=== PATIENT | male | born 1960 | race African-American/Black ===

== ENCOUNTER 2016-12-14 16:12 | Observation (INO) | payer OTHER ==
[~2016-12-14] VITALS: Ht 182.9 cm; Wt 99.6 kg
[~2016-12-14 16:12] MED LIST: AUGMENTIN875 MG PO; MOTRIN800 MG PO; NORCO 7.5/321 TABLET PO
[2016-12-14 16:35] LABS: HEMATOCRIT 38.2 % (38.0-50.0); MCH 30.7 PG (29.0-34.0); MCV 90.1 FL (86-99); MEAN PLAT.VOLUME 10.9 uM^3 (9.0-12.4); PLATELET COUNT 192 K/uL (156-360); RBC DIS.WIDTH-CV 13.4 % (11.8-14.6); RBC DIS.WIDTH-SD 44.5 % (39-53); RED BLOOD COUNT 4.24 M/uL (4.00-5.50)
[2016-12-14 16:46] LABS: CHLORIDE 108 mEq/L (99-109); POTASSIUM 3.2 mEq/L (3.7-5.4); SODIUM 142 mEq/L (136-147)
[2016-12-14 16:48] LABS: GLUCOSE 122 mg/dL (70-99)
[2016-12-14 16:49] LABS: ANION GAP 6 MEQ/L (2-14)
[2016-12-14 16:52] LABS: GFR ESTIMATE (CALCULATED) > 59 mL/min/
[2016-12-14 16:53] LABS: UREA NITROGEN (BUN) 7 mg/dL (9-23)
[2016-12-14 16:58] LABS: TROP-I INTERPRETATION NEGATIVE; TROPONIN-I 0.05 ng/mL (0.0-0.30)
[2016-12-14] MEDS ORDERED: NICODERM CQ1 EACH TD (19:57)
[2016-12-14] MEDS ORDERED: LO-DOSE ASPIRIN81 M2 PO (19:58)
[2016-12-14] MEDS ORDERED: SIMVASTATIN80 MG PO (19:58)
[2016-12-14] MEDS ORDERED: ATENOLOL50 MG PO (19:58)
[2016-12-14] MEDS ORDERED: HYDROCHLOROTHIA25 MG PO (19:59)
[2016-12-14] MEDS ORDERED: LISINOPRIL20 MG PO (19:59)
[2016-12-14] MEDS ORDERED: LANTUS 3 M100 UNITS1 SC (20:00)
[2016-12-14] MEDS ORDERED: METFORMIN HCL500 MG PO (20:00)
[2016-12-14] MEDS ORDERED: GLIPIZIDE5 MG PO (20:01)
[2016-12-14] MEDS ORDERED: IBUPROFEN800 MG PO (20:01)
[2016-12-14] MEDS ORDERED: NICOTINE LOZENGE2 MG BC (20:04)
[2016-12-14 21:26] LABS: TOTAL BILIRUBIN 0.6 mg/dL (0.0-1.0)
[2016-12-14 21:27] LABS: ALKALINE PHOSPHATASE 72 IU/L (3-129)
[2016-12-14 21:30] LABS: DIRECT BILIRUBIN 0.2 mg/dL (0.0-0.3)
[2016-12-14 21:31] LABS: LIPASE 17 U/L (1.0-51.0)
[2016-12-14 22:56] LABS: TROP-I INTERPRETATION NEGATIVE; TROPONIN-I 0.05 ng/mL (0.0-0.30)
[2016-12-15 00:32] VITALS: BP 171/91
[2016-12-15 00:59] LABS: POINT-OF-CARE METER ID UU13113831
[2016-12-15 04:51] VITALS: BP 134/80
[2016-12-15 05:15] LABS: HEMATOCRIT 37.3 % (38.0-50.0); MCH 30.8 PG (29.0-34.0); MCV 90.5 FL (86-99); RBC DIS.WIDTH-CV 13.4 % (11.8-14.6); RBC DIS.WIDTH-SD 44.5 % (39-53); RED BLOOD COUNT 4.12 M/uL (4.00-5.50)
[2016-12-15 05:33] LABS: ANION GAP 5 MEQ/L (2-14); CHLORIDE 111 MEQ/L (99-109); GFR ESTIMATE (CALCULATED) > 59 mL/min/; POTASSIUM 3.5 MEQ/L (3.7-5.4); SAMPLE HEMOLYSIS CHECK 0; SAMPLE ICTERIC CHECK 0; SAMPLE LIPEMIA CHECK 0; SODIUM 142 MEQ/L (136-147); UREA NITROGEN (BUN) 10 mg/dL (9-23)
[2016-12-15 05:34] LABS: GLUCOSE 67 mg/dL (70-99)
[2016-12-15 05:36] LABS: TROP-I INTERPRETATION NEGATIVE; TROPONIN-I 0.04 ng/mL (0.0-0.30)
[2016-12-15 05:48] LABS: MEAN PLAT.VOLUME 11.2 uM^3 (9.0-12.4); PLAT.SUFFICIENCY ADEQUATE; PLATELET COUNT 175 K/uL (156-360)
[2016-12-15 06:45] LABS: POINT-OF-CARE METER ID UU13113831
[2016-12-15 08:45] VITALS: BP 132/81
[2016-12-15 12:01] VITALS: BP 129/80
[2016-12-15 12:15] LABS: POINT-OF-CARE METER ID UU13113831
[2016-12-15] MEDS ORDERED: NICODERM CQ1 EAC1 TD (15:25)
== END 2016-12-15 16:26 | disposition home or self-care (01) ==
LOC: EME 16:12 → EDOF 20:36 → 5WEST 20:36
PROVIDERS: Emergency Medicine; Hospitalist
DX: R07.9 Chest pain, unspecified (principal); R94.31 Abnormal electrocardiogram [ECG] [EKG]; I11.9 Hypertensive heart disease without heart failure; Z91.14 Patient's other noncompliance with medication regimen; I25.10 Atherosclerotic heart disease of native coronary artery without angina pectoris; E78.5 Hyperlipidemia, unspecified; E11.9 Type 2 diabetes mellitus without complications; F17.200 Nicotine dependence, unspecified, uncomplicated; Z79.82 Long term (current) use of aspirin; Z79.4 Long term (current) use of insulin; Z79.84 Long term (current) use of oral hypoglycemic drugs; I25.2 Old myocardial infarction; F14.10 Cocaine abuse, uncomplicated
CPT/HCPCS: 71020; 71275; 80048; 80076; 82948; 83690; 83880; 84484; 85027; 93005; 99281; 99285; G0378; J1644; J1815; J2405